=== PATIENT | female | born 1960 | race African-American/Black ===

== ENCOUNTER 2019-09-02 22:02 | Inpatient (IN) | payer MEDICARE, MEDICAID ==
[~2019-09-02] VITALS: Ht 165.1 cm; Wt 103.4 kg
[~2019-09-02 22:02] MED LIST: ALBUTEROL ORI; BACLOFEN PO; COLACE PO; DILANTIN PO; DOCU-138 PO; KEPPRA PO; LASIX; LISINOPRIL; METF-414 PO; MILK OF MAGNESIA PO; NEURONTIN PO; OXYCODONE PO; TYLENOL PO; ZANAFLEX PO; ZESTRIL
[2019-09-02] MEDS ORDERED: PREDNISONE 20MG TABLET PO ONE (23:00)
[2019-09-02 23:31] LABS: BASOPHILS % 0.9 % (0.0-2.0); EOSINOPHILS % 1.3 % (0.0-5.0); HEMATOCRIT. 41.5 % (36.0-48.0); HEMOGLOBIN. 13.9 g/dL (12.0-16.0); LYMPHOCYTES % 26.1 % (20.0-50.0); MEAN CORPUSCULAR HEMOGLOBIN 30.2 pg (28.0-32.0); MEAN CORPUSCULAR VOLUME 90.1 fL (81.0-99.0); MONOCYTES % 5.8 % (2.0-8.0); NEUTROPHILS % 65.9 % (40.0-76.0); PLATELET 255 x1000/uL (130-400); RED BLOOD CELL COUNT 4.61 mill/uL (4.2-5.4); RED CELL DISTRIBUTION WIDTH 14.4 % (11.6-14.6)
[2019-09-02 23:37] LABS: CHLORIDE 110 mEq/L (98-107)
[2019-09-02] MEDS ORDERED: LISINOPRIL 40MG TABLET PO ONE (23:45)
[2019-09-02] MEDS ORDERED: KETOROLAC 30MG/ML VIAL IV ONE (23:45)
[2019-09-03] MEDS ORDERED: LABETALOL HCL 20MG/4ML CARPUJECT IV ONE (00:15)
[2019-09-03] MEDS: LABETALOL 5MG/ML SYR 20 MG/4 ML SYRINGE IV NR ×2 (00:30→04:28)
[2019-09-03] MEDS ORDERED: HYDRALAZINE 20MG/ML VIAL IV ONE (08:45)
[2019-09-03] MEDS ORDERED: HYDRALAZINE 20MG/ML VIAL IV NR (09:00)
[2019-09-03] MEDS ORDERED: HYDRALAZINE 20MG/ML VIAL ONE (09:09)
[2019-09-03 09:23] VITALS: BP 181/81
[2019-09-03 09:45] VITALS: BP 181/81
[2019-09-03] MEDS ORDERED: CLONIDINE 0.1MG TABLET PO PRN (11:00)
[2019-09-03] MEDS: HYDROCODONE/ACETAMINOPHEN 10/325MG TABLET PO PRN ×2 (11:22→16:48)
[2019-09-03 12:00] VITALS: BP 137/62
[2019-09-03] MEDS: ENOXAPARIN 40MG/0.4ML SYR SUBCUT SCH (12:03)
[2019-09-03 16:00] VITALS: BP 119/80
[2019-09-03] MEDS ORDERED: AMLODIPINE 10MG TABLET PO NR (16:00)
[2019-09-03] MEDS ORDERED: SENN-170 MT (16:41)
[2019-09-03] MEDS ORDERED: PANT40TA4 MT (16:41)
[2019-09-03] MEDS ORDERED: DULO60CA64 PO (16:41)
[2019-09-03] MEDS ORDERED: ACID1CAP2 MT (16:41)
[2019-09-03] MEDS ORDERED: MIDO10TA MT (16:41)
[2019-09-03] MEDS ORDERED: HYDR-4001 MT (16:41)
[2019-09-03] MEDS ORDERED: KEPP500 MT (16:41)
[2019-09-03] MEDS ORDERED: GABA800T97 PO (16:41)
[2019-09-03] MEDS ORDERED: HYDR-4009 PO (16:41)
[2019-09-03] MEDS ORDERED: CLON0.1T PO (16:41)
[2019-09-03] MEDS ORDERED: MULT-1146 MT (16:41)
[2019-09-03] MEDS ORDERED: INSU100C6 SQ (16:57)
[2019-09-03] MEDS ORDERED: PNEUMOCOCCAL 23-VAL P-SAC VAC 0.5 ML IM ONE (18:15)
[2019-09-03] MEDS: LEVETIRACETAM 500MG TABLET PO SCH (18:59)
[2019-09-03] MEDS: DOCUSATE SODIUM 100MG CAPSULE PO SCH (18:59)
[2019-09-03] MEDS: GABAPENTIN 400MG CAPSULE PO SCH (18:59)
[2019-09-03 20:00] VITALS: BP 155/76
[2019-09-03] MEDS: LEVETIRACETAM 500MG PREMIX 100 ML IV SCH (20:48)
[2019-09-03 21:23] LABS: ETHANOL BLOOD < 10 mg/dL
[2019-09-03 21:28] LABS: CREATINE KINASE 85 IU/L (26-192); T4 FREE 1.03 ng/dL (0.76-1.46)
[2019-09-03 22:31] LABS: VITAMIN B12 SERUM 195 pg/mL (211-911)
[2019-09-03 23:12] LABS: FOLIC ACID (FOLATE) SERUM > 20.00 ng/mL (>5.38)
[2019-09-04] VITALS: BP 155/72
[2019-09-04] MEDS: HYDROCODONE/ACETAMINOPHEN 10/325MG TABLET PO PRN ×6 (00:35→21:35)
[2019-09-04 04:00] VITALS: BP 164/65
[2019-09-04 07:26] LABS: HEMATOCRIT 38.7 % (36.0-48.0); HEMOGLOBIN 12.7 g/dL (12.0-16.0); MEAN CORPUSCULAR HEMOGLOBIN 29.5 pg (28.0-32.0); MEAN CORPUSCULAR VOLUME 89.9 fL (81.0-99.0); PLATELET 277 x1000/uL (130-400); RED BLOOD CELL COUNT 4.31 mill/uL (4.2-5.4); RED CELL DISTRIBUTION WIDTH 14.5 % (11.6-14.6)
[2019-09-04 07:39] LABS: CHLORIDE 110 mEq/L (98-107)
[2019-09-04 08:00] VITALS: BP 139/97
[2019-09-04] MEDS: PANTOPRAZOLE 40MG DR TABLET PO SCH (08:33)
[2019-09-04] MEDS: GABAPENTIN 400MG CAPSULE PO SCH ×2 (08:34→16:42)
[2019-09-04] MEDS: LEVETIRACETAM 500MG TABLET PO SCH ×2 (08:35→16:42)
[2019-09-04] MEDS: DOCUSATE SODIUM 100MG CAPSULE PO SCH ×2 (08:35→16:42)
[2019-09-04] MEDS: SENNOSIDES 8.6MG TABLET PO SCH (08:36)
[2019-09-04] MEDS: MULTIVITAMINS,THER W-MINERALS TABLET PO SCH (08:36)
[2019-09-04] MEDS: ENOXAPARIN 40MG/0.4ML SYR SUBCUT SCH (08:37)
[2019-09-04] MEDS: DULOXETINE HCL 60MG DR CAPSULE PO SCH (08:37)
[2019-09-04] MEDS: ASPIRIN 81MG TABLET PO SCH (08:46)
[2019-09-04] MEDS: AMLODIPINE 10MG TABLET PO SCH (08:54)
[2019-09-04] MEDS ORDERED: MEDICATION NOT ON FORMULARY EA (Gabapentin 800 MG) PO SCH (09:00)
[2019-09-04] MEDS ORDERED: MEDICATION NOT ON FORMULARY EA (Multivitamin (Multi Vitamin Daily) 1 TAB) MT SCH (09:00)
[2019-09-04] MEDS: LEVETIRACETAM 500MG PREMIX 100 ML IV SCH ×2 (10:19→21:04)
[2019-09-04 12:00] VITALS: BP 113/70
[2019-09-04 16:00] VITALS: BP 113/51
[2019-09-04] MEDS: CYANOCOBALAMIN 1000MCG/ML VIAL IM SCH (17:01)
[2019-09-04 20:11] VITALS: BP 93/67
[2019-09-04] MEDS ORDERED: ATORVASTATIN CALCIUM 40MG TABLET PO SCH (21:00)
[2019-09-05 00:35] VITALS: BP 94/48
[2019-09-05 04:00] VITALS: BP 151/78
[2019-09-05] MEDS: HYDROCODONE/ACETAMINOPHEN 10/325MG TABLET PO PRN ×2 (05:21→19:43)
[2019-09-05 08:12] VITALS: BP 91/60
[2019-09-05] MEDS ORDERED: ENOXAPARIN 30MG/0.3ML SYR SUBCUT SCH (09:00)
[2019-09-05] MEDS: AMLODIPINE 10MG TABLET PO SCH ×2 (09:00→09:11)
[2019-09-05] MEDS: MULTIVITAMINS,THER W-MINERALS TABLET PO SCH (09:10)
[2019-09-05] MEDS: HYDROCODONE/ACETAMINOPHEN 5/325MG TABLET PO PRN ×2 (09:10→14:02)
[2019-09-05] MEDS: LEVETIRACETAM 500MG TABLET PO SCH ×2 (09:10→17:51)
[2019-09-05] MEDS: SENNOSIDES 8.6MG TABLET PO SCH (09:10)
[2019-09-05] MEDS: PANTOPRAZOLE 40MG DR TABLET PO SCH (09:10)
[2019-09-05] MEDS: ASPIRIN 81MG TABLET PO SCH (09:10)
[2019-09-05] MEDS: DOCUSATE SODIUM 100MG CAPSULE PO SCH ×2 (09:10→17:51)
[2019-09-05] MEDS: GABAPENTIN 400MG CAPSULE PO SCH ×2 (09:10→17:51)
[2019-09-05] MEDS: CYANOCOBALAMIN 1000MCG/ML VIAL IM SCH (09:11)
[2019-09-05] MEDS: DULOXETINE HCL 60MG DR CAPSULE PO SCH (09:14)
[2019-09-05 12:19] VITALS: BP 121/60
[2019-09-05 16:21] VITALS: BP 115/69
[2019-09-05 21:12] VITALS: BP 144/63
[2019-09-06] VITALS: BP 141/69
[2019-09-06 04:00] VITALS: BP 139/71
[2019-09-06] MEDS ORDERED: FAMOTIDINE 20MG TABLET PO SCH (09:00)
== END 2019-09-05 21:12 | DRG 304 ==
LOC: ER 22:02 → MICUSO 23:57 → 7WST 09-03 08:12 → 6WST 09-03 23:53
PROVIDERS: ADMIT Internal Medicine; ATTEND Internal Medicine
DX: I16.0 Hypertensive urgency (principal); G92 Toxic encephalopathy; G91.9 Hydrocephalus, unspecified; G81.11 Spastic hemiplegia affecting right dominant side; G81.94 Hemiplegia, unspecified affecting left nondominant side; E11.42 Type 2 diabetes mellitus with diabetic polyneuropathy; E11.649 Type 2 diabetes mellitus with hypoglycemia without coma; E87.5 Hyperkalemia; F20.9 Schizophrenia, unspecified; E87.8 Other disorders of electrolyte and fluid balance, not elsewhere classified; G35 Multiple sclerosis; G40.909 Epilepsy, unspecified, not intractable, without status epilepticus; Z86.73 Personal history of transient ischemic attack (TIA), and cerebral infarction without residual deficits; Z03.818 Encounter for observation for suspected exposure to other biological agents ruled out; E53.8 Deficiency of other specified B group vitamins; E78.00 Pure hypercholesterolemia, unspecified; E78.5 Hyperlipidemia, unspecified; G93.89 Other specified disorders of brain; I11.9 Hypertensive heart disease without heart failure; Z82.49 Family history of ischemic heart disease and other diseases of the circulatory system; Z74.01 Bed confinement status; Z88.0 Allergy status to penicillin; Z88.1 Allergy status to other antibiotic agents; Z79.899 Other long term (current) drug therapy
CPT/HCPCS: 36415; 70551; 71045; 80048; 80053; 80061; 80320; 82140; 82550; 82607; 82746; 82962; 83036; 83880; 84439; 84443; 84481; 84484; 85025; 85027; 92610; 93005; 96374; 97163; 97166; 99285; J0360; J1650; J1885; J1953; J3420; J3490; J7512; G0480; U0003-CS